=== PATIENT | male | born 1975 | race Caucasian/White ===

== ENCOUNTER 2020-08-26 13:51 | Emergency (ER) | payer OTHER ==
[~2020-08-26] VITALS: Ht 167.6 cm; Wt 80.0 kg
[2020-08-26 14:08] VITALS: BP 166/106
[2020-08-26 14:38] LABS: BASOPHILS % (AUTO) 1 % (0-1); EOSINOPHILS % (AUTO) 2 % (1-7); LYMPHOCYTES % (AUTO) 19 % (22-44); MEAN CORPUSCULAR HEMOGLOBIN 34.3 pg (27.5-34.5); MEAN CORPUSCULAR HGB CONC 34.1 g/dL (33.2-36.2); MEAN PLATELET VOLUME 9.1 fL (7.4-10.4); MONOCYTES % (AUTO) 9 % (2-9); NEUTROPHILS % (AUTO) 69 % (42-75); PLATELET COUNT 186 x10^3/uL (130-400); RED BLOOD COUNT 5.12 x10^6/uL (4.38-5.82); RED CELL DISTRIBUTION WIDTH 13.9 % (9.4-14.8)
--- NOTE | 2020-08-26 14:41 | NUR ---
DATABASE DEVELOPER: PT TO ROOM FROM LOBBY
[2020-08-26 14:51] LABS: ALBUMIN 4.6 g/dL (3.4-5.0); ANION GAP 4 mmol/L (5-15); CALCIUM 9.5 mg/dL (8.5-10.1); CHLORIDE 109 mmol/L (98-107); CREATININE 1.05 mg/dL (0.7-1.3)
[2020-08-26 14:54] LABS: TROPONIN I 0.032 ng/mL (0.000-0.045)
[2020-08-26] MEDS ORDERED: NEOSPORIN OINT. PKT 1 PACKET ONE ×2 (15:03→16:10)
--- NOTE | 2020-08-26 15:22 | NUR ---
TASK RN: PT RESTING IN [facility], MONITORING IN PLACE, APNS AT BEDSIDE FOR DRESSING APPLICATION, NADN AT THIS TIME, PER PT NO NEEDS AT THIS TIME.
== END 2020-08-26 16:52 | disposition home or self-care (01) ==
LOC: ED 16:45
DX: T23.171A Burn of first degree of right wrist, initial encounter (principal); R42 Dizziness and giddiness; W29.0XXA Contact with powered kitchen appliance, initial encounter; T31.0 Burns involving less than 10% of body surface; Y93.89 Activity, other specified; Y92.69 Other specified industrial and construction area as the place of occurrence of the external cause; Y99.8 Other external cause status
CPT/HCPCS: 16020; 36415; 71045; 80048; 82040; 84484; 85025; 93005; 99285